=== PATIENT | male | born 1935 | race Two or more races ===

== ENCOUNTER 2018-11-08 06:51 | Inpatient (IN) | payer OTHER ==
[~2018-11-08] VITALS: Ht 165.1 cm; Wt 74.4 kg
[2018-11-08] MEDS ORDERED: LABETALOL H5 MG/1 M1 IV (07:07)
[2018-11-08] MEDS ORDERED: ATENOLOL25 MG ORAL (07:07)
[2018-11-08] MEDS ORDERED: ASPIRIN81 MG ORAL (07:07)
--- NOTE | 2018-11-08 07:33 | Emergency Room Report ---
History of Present Illness General Chief Complaint: Gastrointestinal Bleed Source: Patient Present Illness HPI Patient presents with reports that complaints of blood tinged stool Patient reports that he noticed increased diarrhea as well today Red and dark red color with the stool denies any chest pain denies any abdominal pain patient reports last colonoscopy was 3 years ago which was normal Denies any recent trauma patient does travel quite frequently and has had recent travel about 3 weeks ago Denies any other fevers or chills patient does take a baby aspirin daily Allergies: Coded Allergies: No Known Allergies (Unverified , 11/08/18) Patient History Past Medical History: see triage record Pertinent Family History: none Reviewed Nursing Documentation: PMH: Agreed; PSxH: Agreed Nursing Documentation-PMH Hx Hypertension: Yes Review of Systems All Other Systems: negative except mentioned in HPI Physical Exam Vital Signs Date Time Temp Pulse Resp B/P (MAP) Pulse Ox O2 Delivery O2 Flow Rate FiO2 11/08/18 06:56 97.3 74 18 95 Room Air Sp02 EP Interpretation: reviewed, normal General Appearance: well appearing Head: normocephalic, atraumatic Eyes: bilateral eye PERRL, bilateral eye EOMI ENT: hearing grossly normal, normal pharynx Neck: full range of motion, supple Respiratory: lungs clear, no retraction, no accessory muscle use Cardiovascular #1: regular rate, rhythm Gastrointestinal: non tender, soft Rectal: other - Blood-tinged stool melena appearance, Musculoskeletal: normal inspection Neurologic: alert, oriented x3, responsive Skin: no rash, warm/dry Lymphatic: no adenopathy Medical Decision Making Diagnostic Impression: Primary Impression: Gastrointestinal hemorrhage ER Course Given the patient's history exam and presentation Extensive blood work is initiated Patient's abdomen remains soft and otherwise benign on repeat exam therefore initial imaging has not been obtained Hemoglobin is normal Patient's symptoms have started fairly recently Clear signs of melena on stool and patient requires further inpatient care Labs Test 11/08/18 08:00 White Blood Count 5.4 K/UL (4.8-10.8) Red Blood Count 5.34 M/UL (4.70-6.10) Hemoglobin 16.5 G/DL (14.2-18.0) Hematocrit 47.7 % (42.0-52.0) Mean Corpuscular Volume 89 FL (80-99) Mean Corpuscular Hemoglobin 31.0 PG (27.0-31.0) Mean Corpuscular Hemoglobin Concent 34.7 G/DL (32.0-36.0) Red Cell Distribution Width 11.3 % (11.6-14.8) Platelet Count 277 K/UL (150-450) Mean Platelet Volume 5.8 FL (6.5-10.1) Neutrophils (%) (Auto) 64.9 % (45.0-75.0) Lymphocytes (%) (Auto) 24.8 % (20.0-45.0) Monocytes (%) (Auto) 4.7 % (1.0-10.0) Eosinophils (%) (Auto) 4.3 % (0.0-3.0) Basophils (%) (Auto) 1.2 % (0.0-2.0) Prothrombin Time 10.7 SEC (9.30-11.50) Prothromb Time International Ratio 1.0 (0.9-1.1) Activated Partial Thromboplast Time 28 SEC (23-33) Sodium Level 137 MMOL/L (136-145) Potassium Level 3.9 MMOL/L (3.5-5.1) Chloride Level 104 MMOL/L (98-107) Carbon Dioxide Level 26 MMOL/L (21-32) Anion Gap 7 mmol/L (5-15) Blood Urea Nitrogen 15 mg/dL (7-18) Creatinine 1.1 MG/DL (0.55-1.30) Estimat Glomerular Filtration Rate mL/min (>60) Glucose Level 183 MG/DL (74-106) Calcium Level 8.7 MG/DL (8.5-10.1) Total Bilirubin 0.6 MG/DL (0.2-1.0) Aspartate Amino Transf (AST/SGOT) 21 U/L (15-37) Alanine Aminotransferase (ALT/SGPT) 14 U/L (12-78) Alkaline Phosphatase 41 U/L (46-116) Total Creatine Kinase 98 U/L (26-308) Creatine Kinase MB 2.3 NG/ML (0.0-3.6) Creatine Kinase MB Relative Index 2.3 Troponin I 0.000 ng/mL (0.000-0.056) Total Protein 7.0 G/DL (6.4-8.2) Albumin 3.4 G/DL (3.4-5.0) Globulin 3.6 g/dL Albumin/Globulin Ratio 0.9 (1.0-2.7) EKG Diagnostic Results Rate: normal Rhythm: NSR ST Segments: no acute changes Rhythm Strip Diag. Results EP Interpretation: yes Rate: 74 Rhythm: NSR, no PVC's, no ectopy Chest X-Ray Diagnostic Results Chest X-Ray Diagnostic Results : Chest X-Ray Ordered: Yes # of Views/Limited/Complete: 1 View Indication: Chest Pain EP Interpretation: Yes Interpretation: no consolidation, no effusion, no pneumothorax Impression: No acute disease Electronically Signed by: Nazanin Thakkar DO Last Vital Signs Date Time Temp Pulse Resp B/P (MAP) Pulse Ox O2 Delivery O2 Flow Rate FiO2 11/08/18 06:56 97.3 74 18 95 Room Air Status: improved Disposition: ADMITTED INPATIENT Condition: Serious Referrals: NON PHYSICIAN (PCP) Nazanin Thakkar DO November 08, 2018 07:33
[2018-11-08 07:45] VITALS: BP 178/75
[2018-11-08 08:10] LABS: BASOPHILS % (AUTO) 1.2 % (0.0-2.0); EOSINOPHILS % (AUTO) 4.3 % (0.0-3.0); HEMATOCRIT 47.7 % (42.0-52.0); HEMOGLOBIN 16.5 G/DL (14.2-18.0); LYMPHOCYTES % (AUTO) 24.8 % (20.0-45.0); MEAN CORPUSCULAR VOLUME 89 FL (80-99); MONOCYTES % (AUTO) 4.7 % (1.0-10.0); NEUTROPHILS % (AUTO) 64.9 % (45.0-75.0); PLATELET COUNT 277 K/UL (150-450); RED BLOOD COUNT 5.34 M/UL (4.70-6.10); RED CELL DISTRIBUTION WIDTH 11.3 % (11.6-14.8); WHITE BLOOD COUNT 5.4 K/UL (4.8-10.8)
--- NOTE | 2018-11-08 08:20 | NUR ---
ED Nurse Note: Patient present at ER from home due to diarrhea with blood since 0600 this morning. pt aao x4 and ambulatry. calm and cooperative. skin clean and intact but pale. no cardiac or pulmonary distress noted at this time.
[2018-11-08 08:22] LABS: ANION GAP 7 mmol/L (5-15); BLOOD UREA NITROGEN 15 mg/dL (7-18); CALCIUM 8.7 MG/DL (8.5-10.1); CARBON DIOXIDE 26 MMOL/L (21-32); CHLORIDE 104 MMOL/L (98-107); CREATININE 1.1 MG/DL (0.55-1.30); POTASSIUM 3.9 MMOL/L (3.5-5.1); SODIUM 137 MMOL/L (136-145)
--- NOTE | 2018-11-08 08:25 | Diagnostic Imaging Report ---
EXAM: XR Chest, 1 View CLINICAL HISTORY: CP TECHNIQUE: Frontal view of the chest. COMPARISON: No relevant prior studies available. FINDINGS: Lungs: Unremarkable. No consolidation. Pleural space: Unremarkable. No pneumothorax. Heart: Unremarkable. No cardiomegaly. Mediastinum: Unremarkable. Bones/joints: Prosthesis in the visualized right shoulder. Ligament anchor projecting over the left humeral head. Vasculature: Mildly tortuous thoracic aorta. IMPRESSION: No dense consolidation or effusion. Mildly tortuous thoracic aorta
[2018-11-08 08:27] VITALS: BP 158/81
[2018-11-08 08:34] LABS: ALANINE AMINOTRANSFERASE 14 U/L (12-78); ALBUMIN 3.4 G/DL (3.4-5.0); ALBUMIN/GLOBULIN RATIO 0.9 (1.0-2.7); ALKALINE PHOSPHATASE 41 U/L (46-116); ASPARTATE AMINO TRANSFERASE 21 U/L (15-37); BILIRUBIN,TOTAL 0.6 MG/DL (0.2-1.0); CKMB 2.3 NG/ML (0.0-3.6); CREATINE KINASE 98 U/L (26-308)
[2018-11-08] MEDS ORDERED: Pantoprazole Inj IVP ONE (09:15)
--- NOTE | 2018-11-08 09:17 | NUR ---
ED Nurse Note: Pt ambulated to the bathroom and had diarrhea with blood again. ERMD made aware.
[2018-11-08 10:26] VITALS: BP 147/71
--- NOTE | 2018-11-08 10:26 | NUR ---
ED Nurse Note: pt is sleeping in bed in stable condition.
--- NOTE | 2018-11-08 11:06 | NUR ---
ED Nurse Note: Report given to SP Hawkins at medical surgical unit. The room is ready.
--- NOTE | 2018-11-08 11:20 | NUR ---
ED Nurse Note: pt was transferred to [facility] with [address] in stable condition.
--- NOTE | 2018-11-08 11:30 | NUR ---
NURSE NOTES: received pt from ED, on [facility]. pt came from home where he presented 1 episode of diarrhea and bleeding. Home meds were reviewed. Pt lying in bed locked at the lowest position, call light within easy reach, siderails up x2. IV access in place, pervious. Will continue to monitor pt, and do admission assessment.
[2018-11-08] MEDS ORDERED: LISINOPRIL20 MG ORAL (11:35)
[2018-11-08 12:00] VITALS: BP 145/88
[2018-11-08] MEDS: Atenolol 25mg tab ORAL SCH (15:15)
[2018-11-08 16:00] VITALS: BP 121/79
[2018-11-08 16:50] LABS: BASOPHILS % (AUTO) 1.4 % (0.0-2.0); EOSINOPHILS % (AUTO) 1.7 % (0.0-3.0); HEMATOCRIT 40.1 % (42.0-52.0); HEMOGLOBIN 14.3 G/DL (14.2-18.0); LYMPHOCYTES % (AUTO) 27.1 % (20.0-45.0); MEAN CORPUSCULAR VOLUME 87 FL (80-99); NEUTROPHILS % (AUTO) 65.9 % (45.0-75.0); PLATELET COUNT 191 K/UL (150-450); RED BLOOD COUNT 4.61 M/UL (4.70-6.10); WHITE BLOOD COUNT 7.8 K/UL (4.8-10.8)
[2018-11-08] MEDS: D5NS 1,000 ML IV SCH (17:03)
[2018-11-08] MEDS: Lisinopril 20mg tab ORAL SCH (17:04)
--- NOTE | 2018-11-08 18:44 | History & Physical ---
History and Physical History & Physicial #[id number] GI bleed Nancy Mancilla DO November 08, 2018 18:44
--- NOTE | 2018-11-08 19:33 | NUR ---
HAND-OFF: Report given to SP Mcelroy.
--- NOTE | 2018-11-08 19:34 | NUR ---
NURSE NOTES: Pt received sitting up in bed. Awake alert and oriented x4. Bed locked at the lowest position, call light within reach, siderails up x2. No signs of distress, respirations are even and unlabored. IV access in place L fa 18 gauge, IV fluids running, however, IV beeping, may need to reinsert new IV. Will continue to monitor pt.
[2018-11-08 20:00] VITALS: BP 133/80
--- NOTE | 2018-11-08 20:40 | NUR ---
NURSE NOTES: Pt IV was continuing to beep. Reinserted new IV in left forearm 22 gauge. IV fluids running, IV site patent and asymptomatic, will continue to monitor patient.
[2018-11-08] MEDS: Pantoprazole Inj IVP SCH (20:42)
[2018-11-08] MEDS ORDERED: Sorbitol Solution UD 30ml ORAL SCH (21:00)
[2018-11-08] MEDS ORDERED: Atenolol 25mg tab ORAL SCH (21:00)
--- NOTE | 2018-11-08 21:22 | NUR ---
NURSE NOTES: Pt refused tenormin- atenolol 25 mg as he said he usually takes both BP meds in the morning and if he took it right now he would not want to take it in the am - BP 133/80,p 65. Pt was educated on risks and benefits and said he would prefer to take it tomorrow as his BP is "not that high... its actually good for me."
[2018-11-09] VITALS: BP 132/76
--- NOTE | 2018-11-09 01:45 | History and Physical Report ---
DATE OF ADMISSION: 11/08/2018 REASON FOR ADMISSION: GI bleed. HISTORY OF PRESENT ILLNESS: The patient states that he is in his normal state of health. When this morning he woke up, he has had 5 episodes of melanotic diarrhea. He denies any chest pain, nausea, vomiting, fever, or chills. He said, he had a colonoscopy about 15 years ago and had another 1 about 5 years and another 1 about 3 years ago where he had a polyp removed. Reason for the recurrent colonoscopies were due to some type of a colonic infection, which subsequently resolved after the last colonoscopy. He does not smoke or drink and otherwise was in normal state of health. PAST MEDICAL HISTORY: Includes hypertension. SOCIAL HISTORY: Negative for tobacco or drugs. CURRENT MEDICATIONS: Pre-hospital medications and present medications were reviewed, reconciled, and documented in the electronic medical record by dose, frequency, and route. FAMILY HISTORY: Noncontributory. REVIEW OF SYSTEMS: Otherwise negative. PHYSICAL EXAMINATION: VITAL SIGNS: At the time of my exam, he is alert, he is oriented. He is in no acute respiratory distress. He is afebrile. He has pulse of 77, respirations 20, blood pressure is 112/79, pulse is 96% on room air. HEENT: Normocephalic, atraumatic. Oropharynx is moist. Nasal mucosa moist. NECK: Supple. No lymphadenopathy. LUNGS: Decreased at the bases. No wheeze present. HEART: Regular rate and rhythm without a murmur. ABDOMEN: Soft, nontender, . EXTREMITIES: No edema. NEUROLOGIC: No focal neurologic deficits. SKIN: No skin rashes or lesions are present. LABORATORY AND DIAGNOSTIC DATA: His white count 7.8. His initial hemoglobin 16.5 and repeat was 14.3, platelets are 191,000. His sodium is 137, potassium 3.9, chloride , bicarb 22, BUN 15, creatinine 1.1, glucose is 186. His troponin is negative. His INR is 1. A chest x-ray was obtained, which is negative. ASSESSMENT AND PLAN: GI bleed, melanotic, suspect upper GI source. Plan for the patient, his aspirin has been held. Proton pump inhibitor has been initiated. Hemoglobin will be checked again in the morning. DVT prophylaxis with SCDs and ambulation. He is currently NPO and on intravenous fluids. Awaiting for infection referred. GI to come see the patient. We will continue to follow him and monitor his laboratories and vital signs. Nancy Mancilla D.O. DR: IBRAHIMA JOB#: [id number] CC:
[2018-11-09 04:00] VITALS: BP 144/72
[2018-11-09] MEDS: D5NS 1,000 ML IV SCH ×2 (05:53→18:07)
--- NOTE | 2018-11-09 06:04 | NUR ---
NURSE NOTES: Pt had 1 large bowel movement which he described as dark red and bloody with some clots about 250 ml in volume- estimating. He said he had to go so fast and "didnt want to bother" even though I had asked him at the beginning of shift to please not flush as I needed to assess and see his bowel movement. This urgent BM occurred rapidly following administration of sorbitol around 2200. Pt has maintained NPO status. I asked him again if he has another bowel movement to let us see it as it is very important. He verbalized understanding.
[2018-11-09 06:54] LABS: BASOPHILS % (AUTO) 1.2 % (0.0-2.0); EOSINOPHILS % (AUTO) 1.5 % (0.0-3.0); HEMATOCRIT 38.7 % (42.0-52.0); LYMPHOCYTES % (AUTO) 32.2 % (20.0-45.0); MEAN CORPUSCULAR VOLUME 88 FL (80-99); MONOCYTES % (AUTO) 5.8 % (1.0-10.0); NEUTROPHILS % (AUTO) 59.3 % (45.0-75.0); PLATELET COUNT 263 K/UL (150-450); RED BLOOD COUNT 4.42 M/UL (4.70-6.10); RED CELL DISTRIBUTION WIDTH 11.3 % (11.6-14.8); WHITE BLOOD COUNT 5.6 K/UL (4.8-10.8)
[2018-11-09 07:00] LABS: ANION GAP 10 mmol/L (5-15); BLOOD UREA NITROGEN 15 mg/dL (7-18); CALCIUM 8.6 MG/DL (8.5-10.1); CARBON DIOXIDE 23 MMOL/L (21-32); CHLORIDE 108 MMOL/L (98-107); CREATININE 1.1 MG/DL (0.55-1.30); SODIUM 141 MMOL/L (136-145)
--- NOTE | 2018-11-09 07:09 | NUR ---
HAND-OFF: Report given to SP Hawkins.
--- NOTE | 2018-11-09 07:33 | NUR ---
NURSE NOTES: received patient asleep, no discomfort noted. In room air, receiving IVF through LFA access, no infiltration noted. Bed locked at the lowest position possible, call light within easy reach, siderails up x3 for safety. Will continue to monitor patient and follow up with the plan of care.
[2018-11-09 08:00] VITALS: BP 123/75
[2018-11-09] MEDS: Lisinopril 20mg tab ORAL SCH (09:03)
[2018-11-09] MEDS: Pantoprazole Inj IVP SCH ×2 (09:03→21:57)
--- NOTE | 2018-11-09 10:02 | General Progress Note ---
Assessment/Plan Assessment/Plan: GI CONSULT Dictated LGIB - hemorrhoid vs diverticular Colonoscopy in am Thank you Jeanine Marrufo MD Subjective Allergies: Coded Allergies: No Known Allergies (Unverified , 11/08/18) Objective Last 24 Hour Vital Signs Date Time Temp Pulse Resp B/P (MAP) Pulse Ox O2 Delivery O2 Flow Rate FiO2 11/09/18 09:03 123/75 11/09/18 08:00 98.0 68 17 123/75 (91) 97 11/09/18 04:00 97.7 70 16 144/72 (96) 97 11/09/18 00:00 97.6 76 16 132/76 (94) 98 11/08/18 21:00 Room Air 11/08/18 20:42 65 133/80 11/08/18 20:00 97.3 65 15 133/80 (97) 96 11/08/18 17:04 121/79 11/08/18 16:00 97.5 77 20 121/79 (93) 96 11/08/18 15:15 77 121/79 11/08/18 12:00 97.3 62 20 145/88 (107) 97 11/08/18 11:37 Room Air 11/08/18 11:13 98.0 72 17 144/75 98 Room Air 11/08/18 10:26 97.5 69 17 147/71 97 Room Air Intake and Output 11/08/18 11/09/18 19:00 07:00 Intake Total 575 ml 900 ml Balance 575 ml 900 ml Intake Oral 0 ml IV Total 575 ml 900 ml # Voids 1 3 # Bowel Movements 5 2 Laboratory Tests 11/08/18 16:10: White Blood Count 7.8, Red Blood Count 4.61L, Hemoglobin 14.3, Hematocrit 40.1L , Mean Corpuscular Volume 87, Mean Corpuscular Hemoglobin 30.9, Mean Corpuscular Hemoglobin Concent 35.6, Red Cell Distribution Width 11.0L, Platelet Count 191, Mean Platelet Volume 5.4L, Neutrophils (%) (Auto) 65.9, Lymphocytes (%) (Auto) 27.1, Monocytes (%) (Auto) 4.0, Eosinophils (%) (Auto) 1.7, Basophils (%) (Auto) 1.4 11/09/18 06:06: White Blood Count 5.6, Red Blood Count 4.42L, Hemoglobin 14.0L, Hematocrit 38.7L , Mean Corpuscular Volume 88, Mean Corpuscular Hemoglobin 31.7H, Mean Corpuscular Hemoglobin Concent 36.1H, Red Cell Distribution Width 11.3L, Platelet Count 263, Mean Platelet Volume 5.4L, Neutrophils (%) (Auto) 59.3, Lymphocytes (%) (Auto) 32.2, Monocytes (%) (Auto) 5.8, Eosinophils (%) (Auto) 1.5, Basophils (%) (Auto) 1.2, Sodium Level 141, Potassium Level 4.0, Chloride Level 108H, Carbon Dioxide Level 23, Anion Gap 10, Blood Urea Nitrogen 15, Creatinine 1.1, Estimat Glomerular Filtration Rate , Glucose Level 146H, Calcium Level 8.6 Height (Feet): 5 Height (Inches): 5.00 Weight (Pounds): 164 Jeanine Marrufo MD November 09, 2018 10:02
[2018-11-09] MEDS ORDERED: Nulytely 4L ORAL ONE (11:00)
[2018-11-09] MEDS: Atenolol 25mg tab ORAL SCH (11:19)
--- NOTE | 2018-11-09 11:30 | Consultation ---
DATE OF CONSULTATION: 11/09/2018 GASTROENTEROLOGY CONSULTATION CONSULTING PHYSICIAN: Jeanine Marrufo M.D. CHIEF COMPLAINT: I was asked to see this patient by Dr. Cayden Burden, for evaluation of gastrointestinal bleeding. HISTORY OF PRESENT ILLNESS: The patient is a pleasant 83-year-old white man, who was in his usual state of health until the day prior to admission when he noticed hematochezia occurring perhaps seven times during the same day. He stated first time he has had this problem in his life and his last colonoscopy was about two years ago and a polyp was removed. The bleeding was painless. He cannot recall he has had diverticulosis in the past. His bowel movements are normal and not constipated. He does take an aspirin on a daily basis. PAST MEDICAL HISTORY: History of hypertension, on treatment. MEDICATIONS: See the chart list for details. FAMILY HISTORY: Noncontributory and negative. SOCIAL HISTORY: The patient is . He has five children, who all are boys. REVIEW OF SYSTEMS: Otherwise negative. PHYSICAL EXAMINATION: GENERAL: This is a pleasant white man, seen in his room. HEENT: Normocephalic and atraumatic. Sclerae anicteric. Oropharynx clear. NECK: Supple. CHEST: Clear to auscultation. CARDIOVASCULAR: Revealed regular rate. ABDOMEN: Soft with good bowel sounds. EXTREMITIES: Revealed no edema. LABORATORY DATA: Noted. ASSESSMENT: The patient presents with acute lower gastrointestinal bleeding. Differential diagnosis includes either hemorrhoids or diverticular bleeding as two likely causes of the lower gastrointestinal bleeding. The other possibilities would be less likely and these can be evaluated with colonoscopy. Indications, risks, alternatives, and possible complications of procedure were explained to the patient and informed consent was obtained. RECOMMENDATIONS: 1. Clear liquid diet. 2. GI tract preparation. 3. Serial CBC. 4. Colonoscopy tomorrow. Thank you for asking me to participate in the care of this patient. Jeanine Marrufo M.D. DR: TREVOR JOB#: [id number] CC: HARISH
[2018-11-09 12:00] VITALS: BP 125/78
--- NOTE | 2018-11-09 12:18 | NUR ---
CASE MANAGEMENT: INITIAL REVIEW 11/08/2018 83 YO M PRESENTED TO OUR ED FROM HOME CC: BLOODY DIARRHEA PMHx: HTN SI:GI BLEED. T 97.3 HR 74 RR 18 B/P 178/75 SATS 95% ON RA glu 183 IS:NS BOLUS X1 PATIENT ADMITTED TO MED/SURG 11/08/2018 @ 0728 DCP: PATIENT TO BE DISCHARGE TO HOME ONCE MEDICALLY CLEARED. PLAN OF CARE: COLONOSCOPY 11/09/2018 SI:GI BLEED. T 98 HR 68 RR 17 B/P 123/75 SATS 97% ON RA CL 108 GLU 146 IS:IVF @ 75 mL/HR PROTONIX IV Q12H MED/SURG STATUS DCP: PATIENT TO BE DISCHARGE TO HOME ONCE MEDICALLY CLEARED. PLAN OF CARE: COLONOSCOPY
--- NOTE | 2018-11-09 12:28 | NUR ---
INSURANCE F/S FAXED TO RAJEEV AT [facility]. SENIOR PLANS DO NOT GET REPATRIATED. AUTH NUMBER PROVIDED [id number].
[2018-11-09] MEDS ORDERED: D5NS 1000ml IV ONE (15:44)
[2018-11-09 16:00] VITALS: BP 147/76
--- NOTE | 2018-11-09 17:59 | Pulmonology Progress Note ---
Assessment/Plan Assessment/Plan Suspected UGI For scope in am asa on hold ppi hgb stable npo after midnight. Subjective Constitutional: Reports: no symptoms HEENT: Repors: no symptoms Respiratory: Reports: no symptoms Gastrointestinal/Abdominal: Reports: blood in stool Genitourinary: Reports: no symptoms Neurologic: Reports: no symptoms Psychiatric: Reports: no symptoms Allergies: Coded Allergies: No Known Allergies (Unverified , 11/08/18) Subjective hematochezia after prep no cp nv or fever tolerating clear oob on ra no distress Objective Last 24 Hour Vital Signs Date Time Temp Pulse Resp B/P (MAP) Pulse Ox O2 Delivery O2 Flow Rate FiO2 11/09/18 16:00 98.2 83 17 147/76 (99) 97 11/09/18 12:00 98.1 73 17 125/78 (94) 97 11/09/18 11:19 73 125/78 11/09/18 09:03 123/75 11/09/18 09:00 Room Air 11/09/18 08:00 98.0 68 17 123/75 (91) 97 11/09/18 04:00 97.7 70 16 144/72 (96) 97 11/09/18 00:00 97.6 76 16 132/76 (94) 98 11/08/18 21:00 Room Air 11/08/18 20:42 65 133/80 11/08/18 20:00 97.3 65 15 133/80 (97) 96 Intake and Output 11/08/18 11/09/18 19:00 07:00 Intake Total 650 ml 900 ml Balance 650 ml 900 ml Intake Oral 0 ml IV Total 650 ml 900 ml # Voids 1 3 # Bowel Movements 5 2 General Appearance: WD/WN Respiratory/Chest: lungs clear, normal breath sounds Cardiovascular: normal rate, regular rhythm Abdomen: soft, non tender, no organomegaly Extremities: no cyanosis Skin: no rash, no ulcers Neurologic/Psychiatric: alert, oriented x 3 Laboratory Tests 11/09/18 06:06: White Blood Count 5.6, Red Blood Count 4.42L, Hemoglobin 14.0L, Hematocrit 38.7L , Mean Corpuscular Volume 88, Mean Corpuscular Hemoglobin 31.7H, Mean Corpuscular Hemoglobin Concent 36.1H, Red Cell Distribution Width 11.3L, Platelet Count 263, Mean Platelet Volume 5.4L, Neutrophils (%) (Auto) 59.3, Lymphocytes (%) (Auto) 32.2, Monocytes (%) (Auto) 5.8, Eosinophils (%) (Auto) 1.5, Basophils (%) (Auto) 1.2, Sodium Level 141, Potassium Level 4.0, Chloride Level 108H, Carbon Dioxide Level 23, Anion Gap 10, Blood Urea Nitrogen 15, Creatinine 1.1, Estimat Glomerular Filtration Rate , Glucose Level 146H, Calcium Level 8.6 Current Medications Medications (Trade) Dose Ordered Sig/Elfego Route PRN Reason Start Time Stop Time Status Last Admin Dose Admin Atenolol (Tenormin) 25 mg DAILY ORAL 11/08/18 15:15 12/08/18 15:14 11/09/18 11:19 Dextrose/Sodium Chloride 1,000 ml @ 75 mls/hr [id number] IV 11/08/18 15:15 12/08/18 15:14 11/09/18 05:53 Lisinopril (Prinivil) 20 mg DAILY ORAL 11/08/18 15:15 12/08/18 15:14 11/09/18 09:03 Pantoprazole (Protonix) 40 mg EVERY 12 HOURS IVP 11/08/18 21:00 12/08/18 20:59 11/09/18 09:03 Nancy Mancilla DO November 09, 2018 17:59
--- NOTE | 2018-11-09 19:13 | NUR ---
HAND-OFF: Report given to SP Mcelroy.
--- NOTE | 2018-11-09 19:15 | NUR ---
NURSE NOTES: Pt received sitting up in bed. Awake alert and oriented x4. Bed locked at the lowest position, call light within reach, siderails up x2. No signs of distress, respirations are even and unlabored. IV access in place L fa 22 gauge, IV fluids running. Will continue to monitor pt.
[2018-11-09 20:00] VITALS: BP 165/81
[2018-11-10] VITALS (11 sets, daily range): BP systolic 120–163; BP diastolic 54–76
[2018-11-10 06:00] LABS: BASOPHILS % (AUTO) 1.3 % (0.0-2.0); EOSINOPHILS % (AUTO) 6.4 % (0.0-3.0); HEMATOCRIT 33.2 % (42.0-52.0); HEMOGLOBIN 11.7 G/DL (14.2-18.0); LYMPHOCYTES % (AUTO) 35.6 % (20.0-45.0); MEAN CORPUSCULAR VOLUME 89 FL (80-99); MONOCYTES % (AUTO) 5.9 % (1.0-10.0); NEUTROPHILS % (AUTO) 50.7 % (45.0-75.0); PLATELET COUNT 221 K/UL (150-450); RED BLOOD COUNT 3.74 M/UL (4.70-6.10); RED CELL DISTRIBUTION WIDTH 11.2 % (11.6-14.8); WHITE BLOOD COUNT 4.6 K/UL (4.8-10.8)
[2018-11-10 06:17] LABS: ALANINE AMINOTRANSFERASE 20 U/L (12-78); ALBUMIN 2.9 G/DL (3.4-5.0); ALKALINE PHOSPHATASE 29 U/L (46-116); ANION GAP 8 mmol/L (5-15); ASPARTATE AMINO TRANSFERASE 18 U/L (15-37); BILIRUBIN,TOTAL 0.5 MG/DL (0.2-1.0); BLOOD UREA NITROGEN 9 mg/dL (7-18); CALCIUM 8.1 MG/DL (8.5-10.1); CARBON DIOXIDE 24 MMOL/L (21-32); CHLORIDE 109 MMOL/L (98-107); CREATININE 0.9 MG/DL (0.55-1.30); POTASSIUM 3.6 MMOL/L (3.5-5.1); SODIUM 141 MMOL/L (136-145)
--- NOTE | 2018-11-10 07:07 | NUR ---
HAND-OFF: Report given to SP Hawkins.
[2018-11-10] MEDS ORDERED: Midazolam 2mg/2ml Inj IVP PRN (07:15)
[2018-11-10] MEDS ORDERED: DiphenhydrAMINE 50mg/ml Inj IVP PRN (07:15)
[2018-11-10] MEDS ORDERED: Atropine Inj 1mg/10ml Syr IV PRN (07:15)
[2018-11-10] MEDS ORDERED: fentaNYL 100 mcg/2 mL IV PRN (07:15)
--- NOTE | 2018-11-10 07:19 | Anethesia Preoperative Eval ---
Anesthesia Pre-op PMH/ROS General Date of Evaluation: November 10, 2018 Time of Evaluation: 07:16 Anesthesiologist: kim ASA Score: ASA 4 Mallampati Score Class I : Soft palate, uvula, fauces, pillars visible Class II: Soft palate, uvula, fauces visible Class III: Soft palate, base of uvula visible Class IV: Only hard plate visible Mallampati Classification: Class II Surgeon: charly Diagnosis: gi bleed Surgical Procedure: colonoscopy Anesthesia History: none Social History: smoking - nonsmoker Family History: no anesthesia problems Allergies: Coded Allergies: No Known Allergies (Unverified , 11/08/18) Medications: see eMAR Patient NPO?: Yes Past Medical History Cardiovascular: Reports: HTN Gastrointestinal/Genitourinary: Reports: other - gibleed, colitis, polypectomy HEENT: Reports: cataract (R), GAMBELL (L), GAMBELL (R) Hematology/Immune: Reports: anemia Musculoskeletal/Integumentary: Reports: other - gout PSxH Narrative: bilateral shoulder sx, back sx, polypectomy, right cataract sx Anesthesia Pre-op Phys. Exam Physician Exam Last Vital Signs Date Time Temp Pulse Resp B/P (MAP) Pulse Ox O2 Delivery O2 Flow Rate FiO2 11/09/18 20:46 Room Air 11/09/18 20:00 97.6 58 18 165/81 (109) 96 Constitutional: NAD Neurologic: CN 2-12 intact Cardiovascular: RRR Respiratory: CTA Gastrointestinal: S/NT/ND Airway Exam Mallampati Score: Class II MO: limited Neck: flexible TMD: 2fb ROM: limited Anesthesia Pre-op A/P Labs Hematology Test 11/10/18 04:45 White Blood Count 4.6 K/UL (4.8-10.8) L Red Blood Count 3.74 M/UL (4.70-6.10) L Hemoglobin 11.7 G/DL (14.2-18.0) L Hematocrit 33.2 % (42.0-52.0) L Mean Corpuscular Volume 89 FL (80-99) Mean Corpuscular Hemoglobin 31.1 PG (27.0-31.0) H Mean Corpuscular Hemoglobin Concent 35.1 G/DL (32.0-36.0) Red Cell Distribution Width 11.2 % (11.6-14.8) L Platelet Count 221 K/UL (150-450) Mean Platelet Volume 5.6 FL (6.5-10.1) L Neutrophils (%) (Auto) 50.7 % (45.0-75.0) Lymphocytes (%) (Auto) 35.6 % (20.0-45.0) Monocytes (%) (Auto) 5.9 % (1.0-10.0) Eosinophils (%) (Auto) 6.4 % (0.0-3.0) H Basophils (%) (Auto) 1.3 % (0.0-2.0) Chemistry Test 11/10/18 04:45 Sodium Level 141 MMOL/L (136-145) Potassium Level 3.6 MMOL/L (3.5-5.1) Chloride Level 109 MMOL/L (98-107) H Carbon Dioxide Level 24 MMOL/L (21-32) Anion Gap 8 mmol/L (5-15) Blood Urea Nitrogen 9 mg/dL (7-18) Creatinine 0.9 MG/DL (0.55-1.30) Estimat Glomerular Filtration Rate mL/min (>60) Glucose Level 111 MG/DL (74-106) H Hemoglobin A1c 6.2 % (4.3-6.0) H Calcium Level 8.1 MG/DL (8.5-10.1) L Total Bilirubin 0.5 MG/DL (0.2-1.0) Aspartate Amino Transf (AST/SGOT) 18 U/L (15-37) Alanine Aminotransferase (ALT/SGPT) 20 U/L (12-78) Alkaline Phosphatase 29 U/L (46-116) L Total Protein 5.8 G/DL (6.4-8.2) L Albumin 2.9 G/DL (3.4-5.0) L Globulin 2.9 g/dL Albumin/Globulin Ratio 1.0 (1.0-2.7) Risk Assessment & Plan Assessment: asa4 Plan: mac Status Change Before Surgery: No Pre-Antibiotics Drug: Sheree Ma MD November 10, 2018 07:19
[2018-11-10] MEDS: D5NS 1,000 ML IV SCH ×2 (07:22→20:35)
--- NOTE | 2018-11-10 07:59 | NUR ---
NURSE NOTES: received pt awake, alert, no complaint of pain or discomfort. Pt has taken all his bowel prep, said last time he moved his bowel was clear, no bleeding or residue of stool. Last bleeding reported around 1am. Pt receives IVF through LFA access, no sign of infiltration noted. Bed locked at the lowest position possible, call light within easy reach, siderails up x2. Will continue to monitor pt and follow up with the plan of care.
[2018-11-10] MEDS ORDERED: Atropine Sulfate 0.4mg/ml inj IVP PRN (08:00)
[2018-11-10] MEDS: Atenolol 25mg tab ORAL SCH (09:16)
[2018-11-10] MEDS: Lisinopril 20mg tab ORAL SCH (09:17)
[2018-11-10] MEDS: Pantoprazole Inj IVP SCH ×2 (09:17→20:49)
--- NOTE | 2018-11-10 09:57 | NUR ---
*-* INSURANCE *-* ALL CLINICALS AND REVIEWS FAXED TO: (CHECK BAR FOR CORRECT INS INFO) CHELA COSTA:RICHIE QUIROZ.[email or web address] [phone] Work Work
[2018-11-10] MEDS ORDERED: Lidocaine 1% MPF 10mg/ml 5ml ONE (11:30)
[2018-11-10] MEDS ORDERED: Propofol 200mg/20ml IV ONE (11:30)
[2018-11-10] MEDS ORDERED: Atropine Sulfate 0.4mg/ml inj ONE (11:30)
[2018-11-10] MEDS ORDERED: NS 500ML IVPB ONE (11:50)
--- NOTE | 2018-11-10 11:55 | General Progress Note ---
Assessment/Plan Assessment/Plan: Assessment - GIB, likely diverticular - Anemia - Mild DM Recommendations - NPO - IVF - EGD/Colon - Monito labs Subjective Allergies: Coded Allergies: No Known Allergies (Unverified , 11/08/18) Subjective some more bleeding with prep then cleared H&H lower today d/w patient re doing both EGD and Colon d/w patient re elevated glucose and A1C Objective Last 24 Hour Vital Signs Date Time Temp Pulse Resp B/P (MAP) Pulse Ox O2 Delivery O2 Flow Rate FiO2 11/10/18 09:17 159/74 11/10/18 09:16 61 159/74 11/10/18 09:00 Room Air 11/10/18 08:00 97.0 61 18 159/74 (102) 97 11/09/18 20:46 Room Air 11/09/18 20:00 97.6 58 18 165/81 (109) 96 11/09/18 16:00 98.2 83 17 147/76 (99) 97 11/09/18 12:00 98.1 73 17 125/78 (94) 97 Intake and Output 11/09/18 11/10/18 19:00 07:00 Intake Total 825 ml Balance 825 ml IV Total 825 ml # Bowel Movements 1 Laboratory Tests 11/10/18 04:45: White Blood Count 4.6L, Red Blood Count 3.74L, Hemoglobin 11.7L, Hematocrit 33.2L, Mean Corpuscular Volume 89, Mean Corpuscular Hemoglobin 31.1H, Mean Corpuscular Hemoglobin Concent 35.1, Red Cell Distribution Width 11.2L, Platelet Count 221, Mean Platelet Volume 5.6L, Neutrophils (%) (Auto) 50.7, Lymphocytes (%) (Auto) 35.6, Monocytes (%) (Auto) 5.9, Eosinophils (%) (Auto) 6.4H, Basophils (%) (Auto) 1.3, Sodium Level 141, Potassium Level 3.6, Chloride Level 109H, Carbon Dioxide Level 24, Anion Gap 8, Blood Urea Nitrogen 9, Creatinine 0.9, Estimat Glomerular Filtration Rate , Glucose Level 111H, Hemoglobin A1c 6.2H, Calcium Level 8.1L, Total Bilirubin 0.5, Aspartate Amino Transf (AST/SGOT) 18, Alanine Aminotransferase (ALT/SGPT) 20, Alkaline Phosphatase 29L, Total Protein 5.8L, Albumin 2.9L, Globulin 2.9, Albumin/ Globulin Ratio 1.0 Height (Feet): 5 Height (Inches): 5.00 Weight (Pounds): 164 Objective WDWN NCAT supple CTA RR abd soft ND NT no edema non focal Jeanine Marrufo MD November 10, 2018 11:55
--- NOTE | 2018-11-10 11:58 | Pre-Procedure Note/Attestation ---
Pre-Procedure Note/Attestation Complete Prior to Procedure Planned Procedure: not applicable Procedure Narrative: Endoscopy and colonoscopy Indications for Procedure Pre-Operative Diagnosis: GI Bleed Attestation I attest that I discussed the nature of the procedure; its benefits; risks and complications; and alternatives (and the risks and benefits of such alternatives ), prior to the procedure, with the patient (or the patient's legal paper sales representative). I attest that, if there was a reasonable possibility of needing a blood transfusion, the patient (or the patient's legal paper sales representative) was given the [facility] standardized written summary, pursuant to the Wilmer Griswold Blood Safety Act ([place] Health and Safety Code # 1645, as amended). I attest that I re-evaluated the patient just prior to the surgery and that there has been no change in the patient's H&P, except as documented below: Jeanine Marrufo MD November 10, 2018 11:58
--- NOTE | 2018-11-10 12:30 | Endoscopy Procedure Note ---
Endoscopy Procedure Note General Indication for Procedure: GIB Procedures Performed: EGD, colonoscopy Operative Findings/Diagnosis: sigmoid diverticulosis Specimen: none Pt Tolerated Procedure Well: Yes Estimated Blood Loss: none Anesthesia Anesthesiologist: Chris Liang Anesthesia: MAC Medications Medication Given: see anesthesia record Inserted Devices Implant(s) used?: No Quality Quality of Bowel Preparation: Excellent Was there any complications?: No GI Core Measures 50 yrs or older w/o bx or poly: Not Applicable 10yrs. F/U not recommended: Not Applicable If not recommended, why?: Jeanine Marrufo MD November 10, 2018 12:30
--- NOTE | 2018-11-10 12:31 | Brief Operative Note ---
Immediate Post Operative Note Operative Note Chief Complaint: GIB Pre-op Diagnosis: GI Bleed Procedure: EGD, Colon Post-op Diagnosis: Diverticulosis Surgeon: charly Anesthesiologist: Chris Liang Specimen: none Complications: none Condition: stable Fluids: recorded Estimated Blood Loss: none Drains: none Implant(s) used?: No Jeanine Marrufo MD November 10, 2018 12:31
--- NOTE | 2018-11-10 13:03 | General Progress Note ---
Assessment/Plan Assessment/Plan: GI bleed due to diverticulosis hgb down today no signs of further bleeding possible dc tomorrow if stable Subjective Constitutional: Reports: no symptoms Gastrointestinal/Abdominal: Reports: abdominal pain; Denies: black stools, tarry stools, blood in stool, rectal bleeding Allergies: Coded Allergies: No Known Allergies (Unverified , 11/08/18) Objective Last 24 Hour Vital Signs Date Time Temp Pulse Resp B/P (MAP) Pulse Ox O2 Delivery O2 Flow Rate FiO2 11/10/18 12:55 57 23 136/67 96 Room Air 11/10/18 12:50 57 19 152/76 96 Room Air 11/10/18 12:45 59 20 148/71 99 Nasal Cannula 3 11/10/18 12:41 97.0 58 18 140/71 99 Nasal Cannula 3 11/10/18 09:17 159/74 11/10/18 09:16 61 159/74 11/10/18 09:00 Room Air 11/10/18 08:00 97.0 61 18 159/74 (102) 97 11/09/18 20:46 Room Air 11/09/18 20:00 97.6 58 18 165/81 (109) 96 11/09/18 16:00 98.2 83 17 147/76 (99) 97 Intake and Output 11/09/18 11/10/18 19:00 07:00 Intake Total 825 ml Balance 825 ml IV Total 825 ml # Bowel Movements 1 Laboratory Tests 11/10/18 04:45: White Blood Count 4.6L, Red Blood Count 3.74L, Hemoglobin 11.7L, Hematocrit 33.2L, Mean Corpuscular Volume 89, Mean Corpuscular Hemoglobin 31.1H, Mean Corpuscular Hemoglobin Concent 35.1, Red Cell Distribution Width 11.2L, Platelet Count 221, Mean Platelet Volume 5.6L, Neutrophils (%) (Auto) 50.7, Lymphocytes (%) (Auto) 35.6, Monocytes (%) (Auto) 5.9, Eosinophils (%) (Auto) 6.4H, Basophils (%) (Auto) 1.3, Sodium Level 141, Potassium Level 3.6, Chloride Level 109H, Carbon Dioxide Level 24, Anion Gap 8, Blood Urea Nitrogen 9, Creatinine 0.9, Estimat Glomerular Filtration Rate , Glucose Level 111H, Hemoglobin A1c 6.2H, Calcium Level 8.1L, Total Bilirubin 0.5, Aspartate Amino Transf (AST/SGOT) 18, Alanine Aminotransferase (ALT/SGPT) 20, Alkaline Phosphatase 29L, Total Protein 5.8L, Albumin 2.9L, Globulin 2.9, Albumin/ Globulin Ratio 1.0 Height (Feet): 5 Height (Inches): 5.00 Weight (Pounds): 164 General Appearance: no apparent distress Neck: normal alignment Cardiovascular: normal rate Abdomen: non tender, soft, no organomegaly, no mass Cayden Burden MD November 10, 2018 13:03
--- NOTE | 2018-11-10 13:13 | Immediate Post-Op Evaluation ---
Immediate Post-Op Evalulation Immediate Post-Op Evalulation Procedure: egd/colonoscopy Date of Evaluation: November 10, 2018 Time of Evaluation: 12:53 IV Fluids: 425ml 0.9ns Blood Products: none Estimated Blood Loss: negligible Blood Pressure Systolic: 148 Blood Pressure Diastolic: 71 Pulse Rate: 58 Respiratory Rate: 18 O2 Sat by Pulse Oximetry: 99 Temperature (Fahrenheit): 97.1 Pain Score (1-10): 0 Nausea: No Vomiting: No Complications none Patient Status: awake, reacts, patent Hydration Status: adequate Drug: Sheree Ma MD November 10, 2018 13:13
--- NOTE | 2018-11-10 13:16 | 48 Hour Post Anesthesia Eval ---
Post Anesthesia Evaluation Procedure: egd/colonoscopy Date of Evaluation: November 10, 2018 Time of Evaluation: 12:53 Blood Pressure Systolic: 152 0: 76 Pulse Rate: 56 Respiratory Rate: 18 Temperature (Fahrenheit): 97.0 O2 Sat by Pulse Oximetry: 99 Airway: patent Nausea: No Vomiting: No Pain Intensity: 0 Hydration Status: adequate Cardiopulmonary Status: stable Mental Status/LOC: patient returned to baseline Post-Anesthesia Complications: none Follow-up care needed: N/A Sheree Castro MD November 10, 2018 13:16
--- NOTE | 2018-11-10 14:00 | NUR ---
R[employer]CH HEL[employer] SERGEANT SI:GI BLEED VS: BP 130/54, P 87, T 97.0, RR 23, SpO2 97 WBC 4.6, RBC 3.74, H&H 11.7/33.2, CXR: Mildly tortuous thoracic aorta IS:NS x550ml IVPB LISINOPRIL 20mg ATENOLOL 25mg NS x1L IV MED/SURG STATUS Addendum: 11/10/18 at 1408 by Mahnaz Shen LVN S/P EGD/COLONOSCOPY 11/10
--- NOTE | 2018-11-10 19:30 | NUR ---
NURSE NOTES: Received patient awake in bed, alert and oriented x4, no complaints of pain, not in respiratory distress. Instructed the use of call light. Call light in reach. Bed in lowest position and lock engaged. Will continue to monitor.
--- NOTE | 2018-11-10 19:30 | NUR ---
HAND-OFF: Report given to SP Obando.
--- NOTE | 2018-11-10 21:08 | NUR ---
NURSE NOTES: Spoke with Dr. Burden about patient's request not to re insert IV access anymore. MD said "okay". and CBC tomorrow. CBC is ordered earlier today.
--- NOTE | 2018-11-11 01:00 | NUR ---
NURSE NOTES: Pt is received from outgoing nurse Kandy Thurston RN. Pt is in bed ,asleep. No acute distress noted. PT will be monitored.
--- NOTE | 2018-11-11 01:01 | NUR ---
HAND-OFF: Report given to SP Garcia.
--- NOTE | 2018-11-11 02:55 | NUR ---
NURSE NOTES: Pt is in bed, asleep. No acute distress noted.
[2018-11-11 04:00] VITALS: BP 145/59
--- NOTE | 2018-11-11 04:00 | Operative Note - Dictated ---
DATE OF OPERATION: 11/10/2018 PROCEDURE: Upper capsule endoscopy as well as colonoscopy. SURGEON: Jeanine Marrufo M.D. ANESTHESIA: Please see the separate anesthesiologist notes for details. PRE-ENDOSCOPIC DIAGNOSIS: Hematochezia. POST-ENDOSCOPIC DIAGNOSES: 1. Normal upper endoscopy. 2. Sigmoid diverticulosis. PROCEDURE IN DETAIL: The procedure, its risks, indications, alternatives, and possible complications including, but not limited to bleeding, infection, perforation, , and anesthesia complications were explained to the patient and an informed consent was obtained. The patient was then sedated in the left lateral decubitus position. Diagnostic upper endoscope was introduced through the oropharynx and advanced to the duodenum. The endoscope was then gradually withdrawn. The mucosa was examined carefully. Examination of the upper gastrointestinal mucosa did not reveal any abnormalities. The rectal exam was then done, and the colonoscope was introduced in the rectum and advanced to the cecum without difficulty. The colonoscope was then gradually withdrawn, and the mucosa was examined carefully. Examination of the colonic mucosa revealed sigmoid diverticulosis. The colonoscope was removed. The patient was sent to the recovery in good condition. COMPLICATIONS: None. ASSESSMENT: This patient has a gastroscope bleeding which was presumed to be due to diverticular bleeding, which has now resolved. There was no evidence of bleeding seen, and on this examination, about 10 cm of the terminal ileum was also seen. The patient should be managed conservatively and observed overnight and discharged tomorrow if stable. Long-term bowel regimen will be as recommended. RECOMMENDATIONS: 1. Resume diabetic diet. 2. Bowel regimen. 3. Discharge planning. 4. Outpatient followup. Jeanine Marrufo M.D. DR: Callum JOB#: [id number] CC:
[2018-11-11 06:46] LABS: BASOPHILS % (AUTO) 1.1 % (0.0-2.0); EOSINOPHILS % (AUTO) 4.5 % (0.0-3.0); HEMATOCRIT 32.2 % (42.0-52.0); HEMOGLOBIN 11.4 G/DL (14.2-18.0); LYMPHOCYTES % (AUTO) 29.4 % (20.0-45.0); MEAN CORPUSCULAR VOLUME 88 FL (80-99); MONOCYTES % (AUTO) 6.8 % (1.0-10.0); NEUTROPHILS % (AUTO) 58.2 % (45.0-75.0); PLATELET COUNT 215 K/UL (150-450); RED BLOOD COUNT 3.64 M/UL (4.70-6.10); RED CELL DISTRIBUTION WIDTH 11.2 % (11.6-14.8); WHITE BLOOD COUNT 5.9 K/UL (4.8-10.8)
--- NOTE | 2018-11-11 07:25 | NUR ---
HAND-OFF: Report given to SP Cruz.
--- NOTE | 2018-11-11 07:30 | NUR ---
NURSE NOTES: Received patient in bed, awake, alert and oriented x4. Not in respiratory/cardiac distress. [place] bloody stool. Patient denies any pain or discomfort. No IV received and patient refused a new IV insertion and stated that " I am going home today, that's what doctors said yesterday, so I do not need one." RN explained the risks and benefits. Bed is in low position.Call light and personnel items within reach. Will continue plan of care.
[2018-11-11 08:00] VITALS: BP 161/79
[2018-11-11] MEDS: Pantoprazole Inj IVP SCH (09:00)
[2018-11-11] MEDS: Atenolol 25mg tab ORAL SCH (09:00)
[2018-11-11] MEDS: Lisinopril 20mg tab ORAL SCH (09:05)
[2018-11-11 09:07] VITALS: BP 161/79
[2018-11-11] MEDS: D5NS 1,000 ML IV SCH (09:40)
[2018-11-11 11:26] VITALS: BP 162/76
[2018-11-11] MEDS ORDERED: Lisinopril 20mg tab ORAL SCH (11:30)
--- NOTE | 2018-11-11 11:35 | NUR ---
*-* INSURANCE *-* ALL CLINICALS AND REVIEWS FAXED TO: (CHECK BAR FOR CORRECT INS INFO) CHELA COSTA:RICHIE QUIROZ.[facility] [phone] Work Work
--- NOTE | 2018-11-11 11:38 | NUR ---
NURSE NOTES: Rechecked BP 162/76 and pulse rate is 56. Patient denies headache, SOB, chest pain or blurred vision. Spoke with Dr. Burden and relayed patient's condition with new order to give lisinopril 20mg now once. Order read back and carried out.
[2018-11-11 11:56] VITALS: BP 157/83
[2018-11-11] MEDS ORDERED: ATENOLOL25 MG ORAL (12:55)
[2018-11-11] MEDS ORDERED: PANTOPRAZOLE SO40 MG ORAL (12:55)
--- NOTE | 2018-11-11 12:57 | General Progress Note ---
Assessment/Plan Assessment/Plan: GI bleed due to diverticulosis no ASA dc on Protonix x 30 d Subjective Constitutional: Reports: no symptoms Gastrointestinal/Abdominal: Reports: no symptoms Allergies: Coded Allergies: No Known Allergies (Unverified , 11/08/18) Objective Last 24 Hour Vital Signs Date Time Temp Pulse Resp B/P (MAP) Pulse Ox O2 Delivery O2 Flow Rate FiO2 11/11/18 11:56 157/83 11/11/18 11:26 98.1 54 18 162/76 (104) 97 11/11/18 09:07 98.3 52 18 161/79 (106) 97 11/11/18 09:05 169/73 11/11/18 09:00 56 169/73 11/11/18 09:00 Room Air 11/11/18 08:00 98.3 52 18 161/79 (106) 98 11/11/18 04:00 98.3 58 18 145/59 (87) 97 56 11/10/18 21:00 Room Air 11/10/18 20:00 98.6 58 18 122/70 (87) 97 11/10/18 16:00 98.0 63 19 126/68 (87) 98 11/10/18 13:20 58 20 120/61 97 Room Air 11/10/18 13:16 56 18 99 11/10/18 13:13 58 18 99 11/10/18 13:09 97.0 59 21 124/58 96 Room Air 11/10/18 13:00 57 23 130/54 96 Room Air Intake and Output 11/10/18 11/11/18 19:00 07:00 Intake Total 750 ml 570 ml Output Total 0 ml Balance 750 ml 570 ml Intake Oral 420 ml IV Total 750 ml 150 ml Output Estimated Blood Loss 0 ml # Voids 2 Laboratory Tests 11/11/18 05:40: White Blood Count 5.9, Red Blood Count 3.64L, Hemoglobin 11.4L, Hematocrit 32.2L , Mean Corpuscular Volume 88, Mean Corpuscular Hemoglobin 31.3H, Mean Corpuscular Hemoglobin Concent 35.4, Red Cell Distribution Width 11.2L, Platelet Count 215, Mean Platelet Volume 5.5L, Neutrophils (%) (Auto) 58.2, Lymphocytes (%) (Auto) 29.4, Monocytes (%) (Auto) 6.8, Eosinophils (%) (Auto) 4.5H, Basophils (%) (Auto) 1.1 Height (Feet): 5 Height (Inches): 5.00 Weight (Pounds): 164 General Appearance: no apparent distress Cayden Burden MD November 11, 2018 12:57
--- NOTE | 2018-11-11 13:15 | NUR ---
NURSE NOTES: patient was seen by Dr. castro and clear for discharge. Dr. Castro is aware of patient's blood pressure with no new order @ this time since patient took another dose of lisinopril 20mg. Dr. Castro said patient needs to follow up with primary doctor as needed. Prescription was sent to [facility] pharmacy. will follow up.
--- NOTE | 2018-11-11 14:30 | NUR ---
NURSE NOTES: Discharged patient to home accompanied by his in stable condition. Prior to discharge,patient's V/S stable. Afebrile. discharge instruction given to the patient and patient aware when to seek for medical attention. Protonix was delivered from the pharmacy and given to the patient. Patient requested for medical records and filled out the form and faxed to medical records. Original is in the chart.Patient will follow up with his primary doctor and has an appointments. No IV, ID was removed. All belongings were checked by RN and patient. All belongings accounted for. RN escorted the patient to the car.
--- NOTE | 2018-11-11 21:42 | General Progress Note ---
Assessment/Plan Assessment/Plan: Assessment - GIB - diverticular - Anemia - Mild DM Recommendations - high fiber diet - d/c planning - outpatient f/u Subjective Allergies: Coded Allergies: No Known Allergies (Unverified , 11/08/18) Subjective no further bleeding tolerating PO d/w pt re results Objective Last 24 Hour Vital Signs Date Time Temp Pulse Resp B/P (MAP) Pulse Ox O2 Delivery O2 Flow Rate FiO2 11/11/18 11:56 157/83 11/11/18 11:26 98.1 54 18 162/76 (104) 97 11/11/18 09:07 98.3 52 18 161/79 (106) 97 11/11/18 09:05 169/73 11/11/18 09:00 56 169/73 11/11/18 09:00 Room Air 11/11/18 08:00 98.3 52 18 161/79 (106) 98 11/11/18 04:00 98.3 58 18 145/59 (87) 97 56 Intake and Output 11/10/18 11/11/18 19:00 07:00 Intake Total 750 ml 570 ml Output Total 0 ml Balance 750 ml 570 ml Intake Oral 420 ml IV Total 750 ml 150 ml Output Estimated Blood Loss 0 ml # Voids 2 Laboratory Tests 11/11/18 05:40: White Blood Count 5.9, Red Blood Count 3.64L, Hemoglobin 11.4L, Hematocrit 32.2L , Mean Corpuscular Volume 88, Mean Corpuscular Hemoglobin 31.3H, Mean Corpuscular Hemoglobin Concent 35.4, Red Cell Distribution Width 11.2L, Platelet Count 215, Mean Platelet Volume 5.5L, Neutrophils (%) (Auto) 58.2, Lymphocytes (%) (Auto) 29.4, Monocytes (%) (Auto) 6.8, Eosinophils (%) (Auto) 4.5H, Basophils (%) (Auto) 1.1 Height (Feet): 5 Height (Inches): 5.00 Weight (Pounds): 164 Objective WDWN NCAT supple CTA RR abd soft ND NT no edema non focal Jeanine Marrufo MD November 11, 2018 21:42
--- NOTE | 2018-11-12 12:29 | Discharge Summary ---
Discharge Summary Discharge Summary _ DATE OF ADMISSION: 11/08/2018 DATE OF DISCHARGE: 11/11/2018 DISCHARGED BY: Dr. Burden REASON FOR ADMISSION: 83 years old male with past medical history of hypertension , woke up in the morning with 5 episodes of melanotic diarrhea. He denied chest pain, nausea ,vomiting, fever and chills. He had colonoscopy about 15 years ago and then had another one about 5 years ago and another one about 3 years ago, when he had a polyp removal. Reason for recurrent colonoscopies was some type of colonic infection , which subsequently resolved after last colonoscopy. Patient denied illicit drug use , smoking , alcohol abuse. Upon evaluation vital signs were stable. No leukocytosis. Hemoglobin 16.5 , hematocrit 47.7. Stable electrolytes. BUN 15, creatinine 1.1. Troponin negative. Stable LFT. EKG revealed sinus rhythm, no acute ischemic changes. Chest x-ray revealed no acute cardiopulmonary pathology. Patient admitted for further evaluation and management due to GI bleeding. CONSULTANTS: GI specialist Dr. Marrufo [facility]: Patient was initially kept NPO and started on the IV fluids . GI prophylaxis with PPI instituted. GI specialist consult was requested. Aspirin was placed on hold. Hemoglobin and hematocrit were closely monitored with goal to keep hemoglobin above 7. Patient subsequently undergone EGD and colonoscopy on 11/10. It revealed normal upper endoscopy and sigmoid diverticulosis. Patient had a gastroscope bleeding , presumed to be due to diverticular bleeding , which subsequently resolved. No further evidence of bleeding . Prior to discharge hemoglobin 11.4, hematocrit 32.2 . Patient started on diet and was advanced as tolerated. GI specialist recommended conservative management and long-term bowel regimen. GI specialist recommended high-fiber diet and outpatient follow-up. Continue Protonix for additional 30 days. Hemoglobin A1c 6.2. Patient prediabetic and was educated on no concentrated sweets diet. Patient was stable for discharge . FINAL DIAGNOSES: GI bleeding, due to diverticular bleeding Anemia Prediabetes DISCHARGE MEDICATIONS: See Medication Reconciliation list. DISCHARGE INSTRUCTIONS: Patient was discharged home. Follow up with primary care provider in one week. Follow up with GI specialist as outpatient. I have been assigned to dictate discharge summary for this account. I was not involved in the patient's management. Cris Mei NP November 12, 2018 12:29
== END 2018-11-11 14:27 | disposition home or self-care (01) | DRG 379 ==
LOC: EMR 07:15 → 4E 07:28 → EDBEDREQ 10:47
PROC: 0DJD8ZZ Inspection of Lower Intestinal Tract, Via Natural or Artificial Opening Endoscopic (ICD-10-PCS; principal; 2018-11-10 12:06)
PROC: 0DJ08ZZ Inspection of Upper Intestinal Tract, Via Natural or Artificial Opening Endoscopic (ICD-10-PCS; principal; 2018-11-10 12:06)
DX: K57.31 Diverticulosis of large intestine without perforation or abscess with bleeding (principal); I10 Essential (primary) hypertension; Z79.82 Long term (current) use of aspirin; D64.9 Anemia, unspecified; R73.03 Prediabetes
CPT/HCPCS: 36415; 71045; 80048; 80053; 82550; 82553; 83036; 84484; 85025; 85610; 85730; 86850; 86900; 86901; 93005; 94003; 94150; 96374; 99285